=== PATIENT | male | born 1990 | race African-American/Black ===

== ENCOUNTER 2019-04-02 15:27 | Emergency (ER) | payer MEDICAID, OTHER ==
[~2019-04-02] VITALS: Ht 185.4 cm; Wt 87.0 kg
[~2019-04-02 15:27] MED LIST: ACET-2047 PO; ALBU8.5H8 INH; AMOX1TAB10 PO; AZIT500T3 PO; CLOT15CR62 TOP; DIVA-16 PO; DOXY100T20 PO; ESCI10TA48 PO; FLUC100T39 PO; HYDR50TA15 PO; IBUP-1544 PO; LORA10TA3 PO; RISP4TAB2 PO; TRAZ-111 PO
[2019-04-02] MEDS ORDERED: SOD CHLORIDE 0.9% 500 ML IV STA (15:32)
[2019-04-02] MEDS ORDERED: ALBUTEROL 0.5% (NEB) 2.5 MG/0.5 ML AMP INH STA (15:32)
[2019-04-02] MEDS ORDERED: IPRATROPIUM (NEB) 0.5 MG/2.5 ML AMP INH STA (15:32)
[2019-04-02] MEDS ORDERED: METHYLPREDNISOLONE 125 MG INJ IV STA (15:32)
[2019-04-02 15:35] VITALS: Ht 185.4 cm; Wt 87.0 kg
--- NOTE | 2019-04-02 15:49 | ERD ---
ER Documentation Chief Complaint Chief Complaint SOB started today using accessory muscles to breath hx asthma HPI This is a 28-year-old man brought in by EMS for cough, congestion, shortness of breath x3 days, EMS began albuterol therapy at the scene for audible wheezing. Patient states he has no history of asthma or COPD although he does smoke cigarettes. He developed a fever today, denies recent antibiotic use or recent travel, no calf or leg swelling, no chest pain, no vomiting or diarrhea. Patient states he has had URI symptoms for about 3 days but denies headache, neck pain, or neck stiffness ROS All systems reviewed and are negative except as per history of present illness. Medications Home Meds Active Scripts Azithromycin* (Zithromax*) 500 Mg Tablet, 500 MG PO DAILY for 5 Days, TAB Prov:MISHA HURTADO MD 04/02/19 Albuterol Sulfate* (Proair HFA*) 8.5 Gm Hfa.aer.ad, 2 PUFF INH Q6H PRN for WHEEZING AND SOB, #1 INHALER Prov:MISHA HURTADO MD 04/02/19 Reported Medications Acetaminophen* (Acetaminophen*) 650 Mg Tablet, 650 MG PO Q6H PRN for PAIN 4- 02/28, #30 TAB 04/02/19 Hydroxyzine Hcl* (Hydroxyzine Hcl*) 50 Mg Tablet, 50 MG PO Q6H PRN for ITCHING, #30 TAB 04/02/19 Trazodone Hcl* (Trazodone Hcl*) 50 Mg Tablet, 50 MG PO QHS, #30 TAB 04/02/19 Risperidone* (Risperidone*) 4 Mg Tablet, 4 MG PO BID, TAB 04/02/19 Betamethasone-Clotrimazole* (Lotrisone*) 15 Gm Cr, 1 APPLIC TOP BID, TUB 04/02/19 Loratadine* (Loratadine*) 10 Mg Tablet, 10 MG PO DAILY, #30 TAB 04/02/19 Fluconazole* (Fluconazole*) 100 Mg Tablet, 100 MG PO DAILY, TAB STOP DATE 04-09-19 04/02/19 Ibuprofen* (Ibuprofen*) 800 Mg Tablet, 800 MG PO Q8, TAB 04/02/19 Doxycycline Hyclate* (Doxycycline Hyclate*) 100 Mg Tablet.dr, 100 MG PO BID, TAB STOP DATE 04-09-19 04/02/19 Amoxicillin/Potassium Clav (Amox-Clav 875-125 mg Tablet) 875-125 mg Tab, 1 TAB PO BID, #20 TAB STOP DATE 04-14-19 04/02/19 Divalproex Sodium* (Divalproex Sodium*) 500 Mg Tablet.dr, 500 MG PO BID, #120 TAB 04/02/19 Escitalopram Oxalate* (Escitalopram Oxalate*) 10 Mg Tablet, 10 MG PO DAILY, #30 TAB 04/02/19 Allergies Allergies: Coded Allergies: No Known Allergy (Unverified , 04/02/19) PMhx/Soc None History of Surgery: Yes (LEFT ORBITAL) Hx Psychiatric Problems: Yes (PSYCH PROBLEM) Hx Alcohol Use: No Hx Substance Use: No Hx Tobacco Use: No Smoking Status: Current every day smoker FmHx Family History: No diabetes Physical Exam Vitals Vital Signs Date Temp Pulse Resp B/P (MAP) Pulse Ox O2 O2 Flow FiO2 Time Delivery Rate 04/02/19 121 18 135/95 98 Nasal 2.0 17:34 (108) Cannula 04/02/19 130 16 96 Nasal 2.0 28 15:53 Cannula 04/02/19 98.7 151 22 107/85 96 15:35 (92) Physical Exam GENERAL: Well-developed, well-nourished, appears dehydrated, febrile, dyspneic HEENT: Dry mucous membranes, pink conjunctiva, positive clear rhinorrhea, no Kernig sign, no Brudzinski sign NEURO: Alert and oriented 3, cranial nerves II through XII intact bilaterally, pupils equal round reactive to light, no focal deficits or facial asymmetry, sensation intact distally Strength 5/5 in upper and lower extremities bilaterally CARDIAC: Tachycardic and regular no murmurs rubs or gallops LUNGS: Diffuse wheezing bilaterally, no crackles or stridor SKIN: Warm and dry to touch, no abrasions, contusions, or hematomas, no lacerations, no ecchymosis, no target lesions, and without ulcers EXTREMITIES: No clubbing cyanosis or edema, calves are bilaterally symmetrical, no Homans sign, no popliteal cord sign. Distal pulses equal and bilateral PSYCH: Normal affect without agitation or irritability Result Diagram: 04/02/19 1544 04/02/19 1544 Results 24 hrs Laboratory Tests Test 04/02/19 15:44 White Blood Count 7.7 10^3/ul Red Blood Count 4.78 10^6/ul Hemoglobin 14.0 g/dl Hematocrit 43.5 % Mean Corpuscular Volume 91.0 fl Mean Corpuscular Hemoglobin 29.3 pg Mean Corpuscular Hemoglobin Concent 32.2 g/dl Red Cell Distribution Width 12.6 % Platelet Count 153 10^3/UL Mean Platelet Volume 9.9 fl Immature Granulocytes % 0.400 % Neutrophils % 67.6 % Lymphocytes % 21.6 % Monocytes % 7.8 % Eosinophils % 2.3 % Basophils % 0.3 % Nucleated Red Blood Cells % 0.0 /100WBC Immature Granulocytes # 0.030 10^3/ul Neutrophils # 5.2 10^3/ul Lymphocytes # 1.7 10^3/ul Monocytes # 0.6 10^3/ul Eosinophils # 0.2 10^3/ul Basophils # 0.0 10^3/ul Nucleated Red Blood Cells # 0.0 10^3/ul Sodium Level 144 mmol/L Potassium Level 3.9 mmol/L Chloride Level 104 mmol/L Carbon Dioxide Level 29 mmol/L Anion Gap 11 Blood Urea Nitrogen 12 mg/dl Creatinine 1.08 mg/dl Est Glomerular Filtrat Rate mL/min > 60 mL/min Glucose Level 134 mg/dl Calcium Level 9.6 mg/dl Total Bilirubin 0.2 mg/dl Direct Bilirubin 0.00 mg/dl Indirect Bilirubin 0.2 mg/dl Aspartate Amino Transf (AST/SGOT) 27 IU/L Alanine Aminotransferase (ALT/SGPT) 14 IU/L Alkaline Phosphatase 70 IU/L Troponin I < 0.012 ng/ml B-Type Natriuretic Peptide 26 PG/ML Total Protein 8.2 g/dl Albumin 4.5 g/dl Globulin 3.70 g/dl Albumin/Globulin Ratio 1.21 Lipase 80 U/L Current Medications Medications Dose Sig/Zainab Start Time Status Last (Trade) Ordered Route PRN Stop Time Admin Dose Reason Admin Sodium 500 ml @ Q1H STAT 04/02/19 DC 04/02/19 Chloride 500 mls/hr IV 15:32 15:57 04/02/19 16:31 Albuterol 10 mg ONCE STAT 04/02/19 DC 04/02/19 (Proventil INH 15:32 15:50 0.5% (Neb)) 04/02/19 15:34 Ipratropium 1 mg ONCE STAT 04/02/19 DC 04/02/19 Olivia INH 15:32 15:50 (Atrovent 04/02/19 15:34 0.02% (Neb)) 125 mg ONCE STAT 04/02/19 DC 04/02/19 Methylprednis IV 15:32 15:57 olone Sodium 04/02/19 15:34 Succinate (Solu-Medrol) Ibuprofen 600 mg ONCE ONCE 04/02/19 DC 04/02/19 (Motrin) PO 16:00 15:57 04/02/19 16:01 Ceftriaxone 50 ml @ ONCE ONCE 04/02/19 DC 04/02/19 Sodium 100 mls/hr IVPB 17:00 17:09 04/02/19 17:29 Sodium 1,000 ml @ Q1H STAT 04/02/19 04/02/19 Chloride 1,000 mls/hr IV 17:24 17:32 04/02/19 18:23 Procedures/MDM IV line was established patient was placed on monitoring coordinator rhythm strip revealed a narrow complex tachycardia at 140 bpm with upright P and T waves. Patient was afebrile EKG performed, read by me revealed a sinus tachycardia at 142 bpm, normal axis, narrow QRS complex, no concerning ST elevations or depressions noted I administered 500 cc normal saline IV, ibuprofen 600 mg p.o., albuterol 10 mg via nebulizer, ipratropium 1 mg via nebulizer, methylprednisolone 125 mg IV x1 1 view chest x-ray performed, read by me revealed no acute infiltrates, no pneumothorax., No air under the diaphragm CBC and electrolytes are normal, liver function tests were normal, troponin was negative, BNP was low. Administered ceftriaxone 1 g IV. Repeat pulmonary exam reveals clear lungs, no wheezing crackles or stridor, patient's tachypnea has resolved and patient feels much better and appears comfortable. His tachycardia has also improved, he will be discharged with a prescription for oral antibiotics and pro-air Differential diagnoses considered, included but not limited to acute coronary syndrome, pulmonary embolism, aortic dissection, abdominal aortic aneurysm, sepsis, stroke, meningitis, encephalitis, pneumonia, appendicitis, cholecystitis, bowel obstruction, pyelonephritis, nephrolithiasis, cystitis, as well as metabolic, hematologic, and electrolyte abnormalities. As well as abscess, cellulitis, fractures, and dislocations. Patient feels much better at this time, and vital signs are normal, symptoms have improved. I did give strict instructions to return to the ED if symptoms continue or worsen, patient will otherwise follow-up with primary care physician. Patient understood instructions and agreed to plan. Disclaimer: Inadvertent spelling and grammatical errors are likely due to EHR/dictation software use and do not reflect on the overall quality of patient care. Also, please note that the electronic time recorded on this note does not necessarily reflect the actual time of the patient encounter. Departure Diagnosis: Primary Impression: Reactive airway disease Asthma severity: mild Asthma persistence: intermittent Asthma complica tion type: with acute exacerbation Qualified Codes: J45.21 - Mild intermittent asthma with (acute) exacerbation Additional Impression: Pneumonia Pneumonia type: due to unspecified organism Laterality: right Lung location: middle lobe of lung Qualified Codes: J18.1 - Lobar pneumonia, unspecified organism Condition: MISHA Collado MD Apr 02, 2019 15:49
[2019-04-02] MEDS ORDERED: IBUPROFEN 600 MG TAB PO ONE (16:00)
[2019-04-02] MEDS ORDERED: CEFTRIAXONE 1 GM/50 ML (PMX) 50 ML IVPB ONE (17:00)
[2019-04-02] MEDS ORDERED: SOD CHLORIDE 0.9% 1,000 ML IV STA (17:24)
[2019-04-02 20:47] VITALS: BP 133/83; PULSE 115; RESP 18
== END 2019-04-02 20:51 ==
LOC: E/R 15:27
DX: J45.21 Mild intermittent asthma with (acute) exacerbation (principal); F17.210 Nicotine dependence, cigarettes, uncomplicated; J18.1 Lobar pneumonia, unspecified organism
CPT/HCPCS: 36415; 71045; 80053; 83690; 83880; 84484; 85025; 87040; 93005; 94644; 96361; 96365; 96366; 96375; J0696; J2930; J7030; J7040; Z7502; Z7610